=== PATIENT | male | born 1990 | race Hispanic/Latino ===

== ENCOUNTER 2017-08-27 14:46 | Emergency (ER) | payer SELFPAY ==
[2017-08-27 14:57] VITALS: TEMP 97.4; O2SAT 100
[2017-08-27 15:31] VITALS: BP 129/83; PULSE 61; RESP 17
--- NOTE | 2017-08-27 15:43 | C.PDOC ---
History Of Present Illness 27 y/o M p/w chest pain x years, worsening in the past 2 weeks. States pain is sharp, in the L sided chest, in a focal area, occurs at rest, lasts about 2 seconds, occurs numerous times per day, feels like "bubble" that makes him hold his breath until it "pops" or goes away. Denies fever, chills, vomiting, dyspnea , leg swelling, recent travel, rash, trauma. Patient states he has poor posture. Time Seen by Provider: 08/27/17 15:26 Chief Complaint (Nursing): Chest Pain Past Medical History Vital Signs: Last Vital Signs Temp 97.4 F L 08/27/17 14:53 Pulse 60 08/27/17 15:21 Resp 17 08/27/17 15:21 BP 129/83 08/27/17 15:21 Pulse Ox 100 08/27/17 15:21 Family History: States: No Known Family Hx - Social History Hx Alcohol Use: No Hx Substance Use: No Review Of Systems Except As Marked, All Systems Reviewed And Found Negative. Constitutional: Negative for: Fever Gastrointestinal: Negative for: Vomiting Physical Exam - Physical Exam Additional Physical Exam Comments: Gen: NAD Head: NC Eyes: No scleral icterus ENT: MMM Neck: Supple Chest: No deformity. No reproducible tenderness. CV: Regular rate Lung: CTA b/l Abd: Soft Extremities: No swelling Skin: No rash Neuro: Alert ED Course And Treatment O2 Sat by Pulse Oximetry: 100 Medical Decision Making Medical Decision Making: EKG Sinus rhythm 60 bpm, no ST/T wave changes. Symptoms consistent with Precordial Catch Syndrome. Offered patient other tests to exclude other emergent disease but in light of chronicity of symptoms and insurance concern, patient requested information and no further tests at this time. Disposition - Disposition Disposition: HOME/ ROUTINE Disposition Time: 15:42 Condition: STABLE - Clinical Impression Clinical Impression: Chest pain
--- NOTE | 2017-08-28 13:46 | CARD ---
APPROVED REPORT EKG Measurement Heart [id number] <Conclusion> Sinus bradycardia Otherwise normal ECG
== END 2017-08-27 15:46 | disposition home or self-care (01) ==
LOC: C.ER 14:46
DX: R07.9 Chest pain, unspecified (principal)